=== PATIENT | male | born 1945 | race Hispanic/Latino ===

== ENCOUNTER 2021-08-25 23:16 | Emergency (ER) | payer OTHER ==
[~2021-08-25] VITALS: Ht 177.8 cm; Wt 79.8 kg
[2021-08-25] MEDS ORDERED: TRAMADOL HCL 50 MG TAB PO STA (23:38)
[2021-08-26] MEDS ORDERED: ULTRAM 50MG50 MG PO (02:18)
[2021-08-26] MEDS ORDERED: AZITHROMYCIN250 MG PO (02:18)
[2021-08-26] MEDS ORDERED: VENTOLIN HFA18 GM INH (02:18)
[2021-08-26 05:00] VITALS: BP 141/78
== END 2021-08-26 02:35 | disposition home or self-care (01) ==
LOC: ER 23:23
DX: S00.83XA Contusion of other part of head, initial encounter (principal); S22.41XA Multiple fractures of ribs, right side, initial encounter for closed fracture; M25.551 Pain in right hip; W01.0XXA Fall on same level from slipping, tripping and stumbling without subsequent striking against object, initial encounter; Y93.01 Activity, walking, marching and hiking; Y92.002 Bathroom of unspecified non-institutional (private) residence as the place of occurrence of the external cause
CPT/HCPCS: 36415; 70450; 71250; 72192; 82948; 99284